=== PATIENT | female | born 1985 | race Hispanic/Latino ===

== ENCOUNTER 2016-10-10 20:21 | Emergency (ER) | payer OTHER ==
[2016-10-10 20:42] VITALS: BP 147/78; PULSE 91; RESP 16; TEMP 99; O2SAT 100
[2016-10-10] MEDS ORDERED: Oxycodone/Acetaminophen 5/325 mg Tab PO STA (20:55)
--- NOTE | 2016-10-10 21:22 | ED PDOC ---
Lower Extremity Pain/Injury Time Seen by Provider: 10/10/16 20:45 Chief Complaint (Nursing): Abnormal Skin Integrity Chief Complaint (Provider): abrasion/fall History Per: Patient History/Exam Limitations: no limitations Additional Complaint(s): 30yo F in Ed eval of left lower leg injury sustained today ater trip and fall. sustained abrasion to ant. leg and now with pain upon touch, however able to bear wght. no swelling no radiation tetanus is uptodate. - Risk Factors DVT Risk Factors: Pos: None Past Medical History Reviewed: Historical Data, Nursing Documentation, Vital Signs Vital Signs: Last Vital Signs Temp 99.0 F 10/10/16 20:40 Pulse 91 H 10/10/16 20:40 Resp 16 10/10/16 20:40 BP 147/78 10/10/16 20:40 Pulse Ox 100 10/10/16 20:40 - Medical History Other PMH: bony tumor(benign) - Family History Family History: States: No Known Family Hx - Allergies Allergies/Adverse Reactions: Allergies Allergy/AdvReac Type Severity Reaction Status Date / Time latex Allergy RASH Verified 10/10/16 20:40 Wells Criteria for PE - Wells Criteria for Pulmonary Embolism Clinical Signs and Symptoms of DVT: No P.E is #1 Diagnosis, or Equally Likely: No Heart Rate >100: No Immobilization at least 3 days;Surgery previous 4 weeks: No Previous, objectively diagnosed PE or DVT: No Hemoptysis: No Malignancy w/treatment within 6 months, or palliative: No Total Score: 0 Review of Systems ROS Statement: Except As Marked, All Systems Reviewed And Found Negative Musculoskeletal: Positive for: Leg Pain Physical Exam - Reviewed Nursing Documentation Reviewed: Yes Vital Signs Reviewed: Yes - Physical Exam Appears: Positive for: Non-toxic, No Acute Distress, Uncomfortable Head Exam: Positive for: ATRAUMATIC, NORMAL INSPECTION, NORMOCEPHALIC Skin: Positive for: Warm, Rash (arasion to left ant. leg lower at least 60% of lower leg. no active bleeding. mild swelling FROM of leg. nueorvasc intact. no calf tendenress no poliptieal tendenress) Neurologic/Psych: Positive for: Alert, Oriented - ECG O2 Sat by Pulse Oximetry: 100 - Radiology X-Ray: Interpreted by De X-Ray Interpretation: No Acute Disease (no acute fx, however luceny noted- however pt is getting f.u xray/treatment for preexisiting condition-benign bony tumors) Medical Decision Making Medical Decision Making: wound care provided, xray negative for acute fx. advised to continue f./u at [facility] for bony tumors. percocet provided in ED. pt improve with pain well appearing. Disposition - Clinical Impression Clinical Impression: Leg injury, Abrasion - Patient ED Disposition Is Patient to be Admitted: No Counseled Patient/Family Regarding: Studies Performed, Diagnosis, Need For Followup, Rx Given - Disposition Disposition: Routine/Home Disposition Time: 21:25 Condition: STABLE Instructions: Abrasion (ED)
--- NOTE | 2016-10-11 10:26 | RAD ---
PROCEDURE: Radiographs of the left tibia and fibula. HISTORY: lower leg COMPARISON: None available. TECHNIQUE: Frontal and lateral views obtained. FINDINGS: BONES: No evidence of acute displaced fracture nor dislocation. No cortical destructive changes. . There is deformity of the distal 1/3 of the left fibula with areas of cortical thickening and transverse lucencies in the distal fibula. . Findings are of uncertain etiology though could represent sequela of old trauma with ORIF postoperative changes however clinical correlation recommended. If there has been no history of fracture or ORIF surgery, followup MRI may be recommended to assess for underlying cortical lesion JOINT SPACES: Unremarkable. OTHER FINDINGS: There may be some mild pretibial soft tissue swelling/infiltration Suspect mild IMPRESSION: Suspect mild pretibial soft tissue swelling/infiltration. No evidence of acute displaced fracture nor dislocation. No cortical destructive changes. . There is deformity of the distal 1/3 of the left fibula with areas of cortical thickening and transverse lucencies in the distal fibula. . Findings are of uncertain etiology though could represent sequela of old trauma with ORIF postoperative changes however clinical correlation recommended. If there has been no history of fracture or ORIF surgery, followup MRI may be recommended to assess for underlying cortical lesion Note this report was placed in [place] review folder for followup.
== END 2016-10-10 22:27 | disposition home or self-care (01) ==
LOC: H.ER 20:21
DX: S89.92XA Unspecified injury of left lower leg, initial encounter (principal); W19.XXXA Unspecified fall, initial encounter; Y92.89 Other specified places as the place of occurrence of the external cause